=== PATIENT | female | born 1955 | race Caucasian/White ===

== ENCOUNTER 2017-05-31 16:15 | Emergency (ER) | payer OTHER ==
[2017-05-31] MEDS ORDERED: NS 0.9% 1000 ML* 1,000 ML IV ONE (18:36)
[2017-05-31 18:51] LABS: Hematocrit 44 % (35-47); Hemoglobin 14.3 g/dl (12.0-16.0); Mean Corpuscular HGB Conc 33 g/dl (31-36); Mean Corpuscular Hemoglobin 28 pg (27-31); Mean Corpuscular Volume 86 fL (80-97); Mean Platelet Volume 9 um3 (7.4-10.4); Red Cell Distribution Width 14 % (10.5-15); White Blood Count 9.4 10^3/ul (3.5-10.8)
[2017-05-31 18:53] LABS: Urine Bilirubin Negative (Negative); Urine Glucose Negative (Negative); Urine Nitrite Negative (Negative)
[2017-05-31 19:05] LABS: Albumin 4.2 g/dL (3.2-5.2); BUN/Creatinine Ratio 20.5 (8-20); Calcium 8.9 mg/dL (8.6-10.3); EGFR African American 104.9 (>60); EGFR Non-African American 81.6 (>60); Globulin 2.9 g/dL (2-4); Magnesium 2.1 mg/dL (1.9-2.7); Potassium 3.8 mmol/L (3.5-5.0); Total Bilirubin 0.3 mg/dL (0.2-1.0); Total Protein 7.1 g/dL (6.4-8.9)
[2017-05-31 19:40] LABS: TSH (Thyroid Stimulating Horm) 2.61 mcIU/mL (0.34-5.60)
--- NOTE | 2017-05-31 20:00 | ED ---
I, Oh,Sovivienne, scribed for Adriana Carranza MD on 05/31/17 at 1837 . Syncope/Near Syncope - HPI Summary HPI Summary: This 61 y/o female presents to ED for a syncopal episode three hours ago. Positive lightheaded dizziness right before the episode. Pt grabbed counter and proceeded to fall, got caught and sit by someone else in chair. Positive neck tightness, and mild chest tightness at 1240 PM. Negative melena. Pt decided to visit ED when she felt persistent general weakness. PMHx includes recently diagnosed with sleep apnea. FHx is positive for [place] to brother in his 40s, and HTN. Primary care involves Niraj Reddy NP. 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- PARTIAL PNEUMONECTOMY. DEVIATED SEPTUM REPAIR. D&C X 2. TOE NAIL REMOVED Hx Anesthesia Reactions: No Infectious Disease History: Denies: Traveled Outside the [place] in Last 30 Days - Family History Known Family History: Negative: Other - breast CA - Social History Alcohol Use: Daily Alcohol Amount: 1 GLASS OF WINE DAILY- A LITTLE MORE ON THE WEEKENDS Substance Use Type: Reports: None Smoking Status (MU): Never Smoked Tobacco Review of Systems Negative: Fever Neurological: Other - Positive for dizziness Positive: Weakness - general weakness, Syncope All Other Systems Reviewed And Are Negative: Yes Physical Exam Triage Information Reviewed: Yes Vital Signs On Initial Exam: Initial Vitals Temp Pulse Resp BP Pulse Ox 98.3 F 84 20 184/96 96 05/31/17 16:19 05/31/17 16:19 05/31/17 16:19 05/31/17 16:19 05/31/17 16:19 Vital Signs Reviewed: Yes Appearance: Positive: Well-Appearing, No Pain Distress Skin: Positive: Warm, Skin Color Reflects Adequate Perfusion, Dry Head/Face: Positive: Normal Head/Face Inspection Eyes: Positive: EOMI, KARIN Neck: Positive: Supple, Nontender Respiratory/Lung Sounds: Positive: Clear to Auscultation, Breath Sounds Present Cardiovascular: Positive: RRR, Pulses are Symmetrical in both Upper and Lower Extremities Abdomen Description: Positive: Nontender, Soft Musculoskeletal: Positive: Strength/ROM Intact Neurological: Positive: Sensory/Motor Intact, Alert, Oriented to Person Place, Time Psychiatric: Positive: Affect/Mood Appropriate AVPU Assessment: Alert Diagnostics - Vital Signs Vital Signs Temp Pulse Resp BP Pulse Ox 05/31/17 16:19 98.3 F 84 20 184/96 96 - Laboratory Lab Results: Lab Results 05/31/17 05/31/17 05/31/17 Range/Units 18:25 18:25 18:25 WBC 9.4 (3.5-10.8) 10^3/ul RBC 5.10 (4.0-5.4) 10^6/ul Hgb 14.3 (12.0-16.0) g/dl Hct 44 (35-47) % MCV 86 (80-97) fL MCH 28 (27-31) pg MCHC 33 (31-36) g/dl RDW 14 (10.5-15) % Plt Count 168 (150-450) 10^3/ul MPV 9 (7.4-10.4) um3 Neut % (Auto) 59.2 (38-83) % Lymph % (Auto) 31.6 (25-47) % Barry % (Auto) 6.7 (1-9) % Eos % (Auto) 1.6 (0-6) % Baso % (Auto) 0.9 (0-2) % Absolute Neuts (auto) 5.6 (1.5-7.7) 10^3/ul Absolute Lymphs (auto) 3.0 (1.0-4.8) 10^3/ul Absolute Monos (auto) 0.6 (0-0.8) 10^3/ul Absolute Eos (auto) 0.1 (0-0.6) 10^3/ul Absolute Basos (auto) 0.1 (0-0.2) 10^3/ul Absolute Nucleated RBC 0.01 10^3/ul Nucleated RBC % 0.1 D-Dimer, Quantitative (Less Than 230) ng/mL Sodium 137 (133-145) mmol/L Potassium 3.8 (3.5-5.0) mmol/L Chloride 105 (101-111) mmol/L Carbon Dioxide 25 (22-32) mmol/L Anion Gap 7 (2-11) mmol/L BUN 15 (6-24) mg/dL Creatinine 0.73 (0.51-0.95) mg/dL Est GFR ( Amer) 104.9 (>60) Est GFR (Non-Af Amer) 81.6 (>60) BUN/Creatinine Ratio 20.5 H (8-20) Glucose 93 (70-100) mg/dL Lactic Acid 1.0 (0.5-2.0) mmol/L Calcium 8.9 (8.6-10.3) mg/dL Magnesium 2.1 (1.9-2.7) mg/dL Total Bilirubin 0.30 (0.2-1.0) mg/dL AST 19 (13-39) U/L ALT 19 (7-52) U/L Alkaline Phosphatase 68 (34-104) U/L Troponin I 0.00 (<0.04) ng/mL Total Protein 7.1 (6.4-8.9) g/dL Albumin 4.2 (3.2-5.2) g/dL Globulin 2.9 (2-4) g/dL Albumin/Globulin Ratio 1.4 (1-3) TSH 2.61 (0.34-5.60) mcIU/mL Urine Color Urine Appearance Urine pH (5-9) Ur Specific [place] (1.010-1.030) Urine Protein (Negative) Urine Ketones (Negative) Urine Blood (Negative) Urine Nitrate (Negative) Urine Bilirubin (Negative) Urine Urobilinogen (Negative) Ur Leukocyte Esterase (Negative) Urine Glucose (Negative) 05/31/17 05/31/17 Range/Units 18:25 18:35 WBC (3.5-10.8) 10^3/ul RBC (4.0-5.4) 10^6/ul Hgb (12.0-16.0) g/dl Hct (35-47) % MCV (80-97) fL MCH (27-31) pg MCHC (31-36) g/dl RDW (10.5-15) % Plt Count (150-450) 10^3/ul MPV (7.4-10.4) um3 Neut % (Auto) (38-83) % Lymph % (Auto) (25-47) % Barry % (Auto) (1-9) % Eos % (Auto) (0-6) % Baso % (Auto) (0-2) % Absolute Neuts (auto) (1.5-7.7) 10^3/ul Absolute Lymphs (auto) (1.0-4.8) 10^3/ul Absolute Monos (auto) (0-0.8) 10^3/ul Absolute Eos (auto) (0-0.6) 10^3/ul Absolute Basos (auto) (0-0.2) 10^3/ul Absolute Nucleated RBC 10^3/ul Nucleated RBC % D-Dimer, Quantitative < 200 (Less Than 230) ng/mL Sodium (133-145) mmol/L Potassium (3.5-5.0) mmol/L Chloride (101-111) mmol/L Carbon Dioxide (22-32) mmol/L Anion Gap (2-11) mmol/L BUN (6-24) mg/dL Creatinine (0.51-0.95) mg/dL Est GFR ( Amer) (>60) Est GFR (Non-Af Amer) (>60) BUN/Creatinine Ratio (8-20) Glucose (70-100) mg/dL Lactic Acid (0.5-2.0) mmol/L Calcium (8.6-10.3) mg/dL Magnesium (1.9-2.7) mg/dL Total Bilirubin (0.2-1.0) mg/dL AST (13-39) U/L ALT (7-52) U/L Alkaline Phosphatase (34-104) U/L Troponin I (<0.04) ng/mL Total Protein (6.4-8.9) g/dL Albumin (3.2-5.2) g/dL Globulin (2-4) g/dL Albumin/Globulin Ratio (1-3) TSH (0.34-5.60) mcIU/mL Urine Color Yellow Urine Appearance Clear Urine pH 6.0 (5-9) Ur Specific [place] 1.020 (1.010-1.030) Urine Protein Negative (Negative) Urine Ketones Negative (Negative) Urine Blood Negative (Negative) Urine Nitrate Negative (Negative) Urine Bilirubin Negative (Negative) Urine Urobilinogen Negative (Negative) Ur Leukocyte Esterase Negative (Negative) Urine Glucose Negative (Negative) Result Diagrams: 05/31/17 18:25 05/31/17 18:25 Lab Statement: Any lab studies that have been ordered have been reviewed, and results considered in the medical decision making process. - EKG 1833 Cardiac Rate: NL - at 67 bpm EKG Rhythm: Sinus Rhythm Course/Dx Course Of Treatment: 61 yo female with normal labs and ekg with near syncope and short lasting cp greater than 6 hours before arrival. All labs, cxr, ddimer and trop neg. Pt and are aware that it looks as though she has not had a heart attack but she needs a stress test sooner than later, she was offered an obv admission but wanted to to go home and will followup as an outpt for a stress test - Diagnoses Provider Diagnoses: Near syncope Discharge - Discharge Plan Condition: Stable Disposition: HOME Patient Education Materials: Near Syncope (ED) Referrals: Niraj Reddy, SET UP WORKER [Primary Care Provider] - 2 Days The documentation as recorded by the Clark ramos Soohyun accurately reflects the service I personally performed and the decisions made by me, Adriana Carranza MD.
[2017-05-31 20:51] VITALS: BP 159/90
== END 2017-05-31 20:53 | disposition home or self-care (01) ==
LOC: ED 16:15
DX: R55 Syncope and collapse (principal); G47.30 Sleep apnea, unspecified; J45.909 Unspecified asthma, uncomplicated; Z88.5 Allergy status to narcotic agent
CPT/HCPCS: 36415; 80053; 81003; 83605; 83735; 84443; 84484; 85025; 85379; 93005; 99282

== ENCOUNTER 2017-06-18 07:27 | Day surgery (SDC) | payer OTHER ==
[~2017-06-18 07:27] MED LIST: Buffered Lidocaine 0.9% SYRIN* 5 ML/SYR SYRINGE INTRADERM ONE; Dexamethasone IV* 4 MG/ML 1 ML (4 MG) IV SLOW PU ONE; Famotidine IV* 10 MG/ML 2 ML (20 mg) IV ONE
[2017-06-18] MEDS ORDERED: Buffered Lidocaine 0.9% SYRIN* 5 ML/SYR SYRINGE ONE (07:36)
[2017-06-18] MEDS ORDERED: Dexamethasone IV* 4 MG/ML 1 ML (4 MG) ONE (07:36)
[2017-06-18] MEDS ORDERED: Famotidine IV* 10 MG/ML 2 ML (20 mg) ONE (07:36)
[2017-06-18] MEDS ORDERED: Scopolamine 1.5 mg* PATCH ONE (08:38)
[2017-06-18] MEDS ORDERED: fentaNYL* 50 MCG/ML 2 ML VIAL (100 MCG VIAL) ONE (08:41)
[2017-06-18] MEDS ORDERED: Midazolam* 1 MG/ML 2 ML VIAL (2 MG) ONE (08:41)
[2017-06-18] MEDS ORDERED: Scopolamine 1.5 mg* PATCH TRANSDERM SCH (09:00)
[2017-06-18] MEDS ORDERED: Silver Nitrate/Potassium Nitr* 1 EA STICK ONE (09:17)
[2017-06-18] MEDS ORDERED: fentaNYL* 50 MCG/ML 2 ML VIAL (100 MCG VIAL) IV PRN (09:35)
[2017-06-18] MEDS ORDERED: DiMENhydriNATE IV* 50 MG/ML VIAL IV PUSH PRN (09:35)
[2017-06-18] MEDS ORDERED: oxyCODONE/Acetamin 5/325 MG* TAB ONE (10:11)
[2017-06-18 10:44] VITALS: BP 151/88
--- NOTE | 2017-06-18 23:11 | OP ---
AMENDED REPORT NOW INCLUDES DATE OF OPERATION - ESIGNED BEFORE ADJUSTMENT * DATE OF OPERATION: 06/18/17 - [facility] DATE OF : [birth year] SURGEON: Enoch Gould MD GAME OPERATOR: None. ANESTHESIOLOGIST: Thai Ballard MD ANESTHESIA: General endotracheal tube. PRE-OP DIAGNOSIS: Thickened endometrium. POST-OP DIAGNOSES: Thickened endometrium. OPERATIVE PROCEDURE: D and C, hysteroscopy. ESTIMATED BLOOD LOSS: Minimal. SPECIMEN: Includes endometrium. COMPLICATIONS: None. FINDINGS: On exam under anesthesia, uterus mid_ position. Cervix, vagina, vulva appeared normal. On hysteroscopy, the uterine cavity appeared atrophic without any polyps or fibroids visualized. Both tubal ostia were well visualized. DESCRIPTION OF PROCEDURE: The patient identified, procedure identified as D and C, hysteroscopy. The patient was taken to the operating room, prepped and draped in the usual fashion in dorsal lithotomy position under general anesthesia. Two single-tooth tenaculums were placed on the anterior lip of the cervix. Cervix was dilated easily up to a #27 Fredy dilator. The hysteroscope was inserted and the above findings were noted. The hysteroscope removed and a sharp curette was inserted. Sharp curettage was performed until good sampling had been taken throughout the circumference. Both single-tooth tenaculums were removed. Silver nitrate was applied to the tenaculum sites. Hemostasis was verified and the patient returned to recovery room in stable condition. All sponge and instrument counts were correct. [id number]/CPS #: [id number] MTDD
== END 2017-06-18 10:45 | disposition home or self-care (01) ==
LOC: OR 07:27
PROVIDERS: ATTEND Obstetrics & Gynecology
DX: R93.8 Abnormal findings on diagnostic imaging of other specified body structures (principal); Z68.41 Body mass index [BMI] 40.0-44.9, adult; G47.33 Obstructive sleep apnea (adult) (pediatric); I10 Essential (primary) hypertension; J45.909 Unspecified asthma, uncomplicated
CPT/HCPCS: 88305; A9270-GY; J1100; J2250; J3010

== ENCOUNTER 2019-03-07 09:07 | Day surgery (SDC) | payer OTHER ==
[~2019-03-07 09:07] MED LIST changes: +Acetaminophen TAB* 325 MG PO PRN; -Buffered Lidocaine 0.9% SYRIN* 5 ML/SYR SYRINGE INTRADERM ONE; +Buffered Lidocaine 1% SYRIN* 1 ML/SYRINGE INTRADERM ONE; -Dexamethasone IV* 4 MG/ML 1 ML (4 MG) IV SLOW PU ONE; -Famotidine IV* 10 MG/ML 2 ML (20 mg) IV ONE
[2019-03-07] MEDS ORDERED: Midazolam* 1 MG/ML 2 ML VIAL (2 MG) ONE ×2 (10:31→10:40)
--- NOTE | 2019-03-07 11:09 | OP ---
DATE OF OPERATION/DATE OF DICTATION: 03/07/2019. DATE OF : 1955 SURGEON: Dr. David Kennedy. ELECTRIC DEICER INSPECTOR: None. ANESTHESIA: Topical with intravenous sedation. PRE-OP DIAGNOSIS: Cataract, left eye. POST-OP DIAGNOSIS: Cataract, left eye. OPERATIVE PROCEDURE: Phacoemulsification and cataract extraction with posterior chamber intraocular lens implant, left eye. COMPLICATIONS: None. BLOOD LOSS: None. OPERATIVE FINDINGS: The patient was brought to the operating room and received a small amount of int ravenous sedation. A drop of Tetracaine was placed in her left eye. She was prepped and draped in t he usual sterile fashion for ophthalmic surgery and attention was directed to the left eye where a sp eculum was placed. A paracentesis was created at the 5 o'clock position and 0.1 cc of 1 percent pres ervative-free Lidocaine was injected into the anterior chamber followed by DisCoVisc. The eye was di gitally stabilized while a 2.75 mm keratome was used to create a triplanar clear corneal incision at the 3 o'clock position. A continuous curvilinear capsulorrhexis was created with a cystotome and Utr renard forceps. BSS on a cannula was used to hydrodissect the lens from the capsule. Phacoemulsificati on was performed in a [id number] technique to create four fragments which were removed. Resi dual cortical material was removed with irrigation and aspiration. DisCoVisc was used to inflate the capsular bag and an AUOOTO 25.5 diopter lens was folded and inserted into the capsular bag. DisCoVis c was removed using irrigation and aspiration. BSS on a cannula was used to hydrate the corneal stro ma and seal the wound. At the end of the case the pupil was round and the lens was centered. The eye was of normal pressure and the wound was water tight. The speculum was removed and topical Maxitrol ointment was placed on the surface of the eye. The eye was closed, patched and shielded and the pat ient was sent to the recovery room in stable condition with post operative instructions and follow-up appointment given. [id number]/[facility] #: [id number]
[2019-03-07 11:17] VITALS: BP 153/83
[2019-03-07] MEDS ORDERED: Tropicamide 1% OPTH.SOL* BTL ONE (12:13)
[2019-03-07] MEDS ORDERED: Lidocaine 1%* 5 ML VIAL ONE (12:13)
[2019-03-07] MEDS ORDERED: Cyclopentolate 1% OPTH.SOL* 2 ML BTL ONE (12:13)
[2019-03-07] MEDS ORDERED: Neomycin/Polymy/Dex OPHTH.OIN* 3.5 GM ONE (12:13)
[2019-03-07] MEDS ORDERED: Tetracaine 0.5% OPTH.SOL 4 ML* 1 DROP BTL ONE (12:13)
[2019-03-07] MEDS ORDERED: Phenylephrine OPHTH SOL 2.5%* 2 ML ONE (12:13)
[2019-03-07] MEDS ORDERED: Ketorolac 0.5% OPHTH (NF) 0.5 % 5 ML BTL ONE (12:13)
== END 2019-03-07 11:10 | disposition home or self-care (01) ==
LOC: OREAST 09:07
PROVIDERS: ATTEND Ophthalmology
DX: H25.12 Age-related nuclear cataract, left eye (principal); J45.909 Unspecified asthma, uncomplicated; I10 Essential (primary) hypertension; M19.90 Unspecified osteoarthritis, unspecified site
CPT/HCPCS: A9270-GY; J2250; V2632

== ENCOUNTER 2019-03-14 07:27 | Day surgery (SDC) | payer OTHER ==
[~2019-03-14 07:27] MED LIST changes: -Acetaminophen TAB* 325 MG PO PRN
[2019-03-14] MEDS ORDERED: Midazolam* 1 MG/ML 2 ML VIAL (2 MG) ONE (08:33)
[2019-03-14] MEDS ORDERED: Lidocaine 2% PF * 5 ML VIAL ONE (08:56)
[2019-03-14] MEDS ORDERED: Propofol* 10 MG/ML 20 ML BTL ONE (08:56)
[2019-03-14 09:09] VITALS: BP 150/76
--- NOTE | 2019-03-14 10:55 | OP ---
DATE OF OPERATION/DATE OF DICTATION: 03/14/2019 - [facility] DATE OF : 1955. SURGEON: Dr. David Kennedy. BACON SKINNER: None. ANESTHESIA: Topical with intravenous sedation. PRE-OP DIAGNOSIS: Cataract, right eye. POST-OP DIAGNOSIS: Cataract, right eye. OPERATIVE PROCEDURE: Phacoemulsification and cataract extraction with posterior chamber intraocular lens implant, right eye. COMPLICATIONS: None. BLOOD LOSS: None. DESCRIPTION OF PROCEDURE: The patient was brought to the operating room and received a small amount of intravenous sedation. A drop of Tetracaine was placed in her right eye. She was prepped and draped in the usual sterile fashion for ophthalmic surgery and attention was directed to the right eye where a speculum was placed. A paracentesis was created at the 11 o'clock position and 0.1 cc of 1 percent preservative-free Lidocaine was injected into the anterior chamber followed by DisCoVisc. The eye was digitally stabilized while a 2.75 mm keratome was used to create a triplanar clear corneal incision at the 9 o'clock position. A continuous curvilinear capsulorrhexis was created with a cystotome and Utrata forceps. BSS on a cannula was used to hydrodissect the lens from the capsule. Phacoemulsification was performed in a divide-and- conquer technique to create four fragments which were removed. Residual cortical material was removed with irrigation and aspiration. DisCoVisc was used to inflate the capsular bag and an AUOOTO 25.0 diopter lens was folded and inserted into the capsular bag. DisCoVisc was removed using irrigation and aspiration. BSS on a cannula was used to hydrate the corneal stroma and seal the wound. At the end of the case the pupil was round and the lens was centered. The eye was of normal pressure and the wound was water tight. The speculum was removed and topical Maxitrol ointment was placed on the surface of the eye. The eye was closed, patched and shielded and the patient was sent to the recovery room in stable condition with post operative instructions and follow-up appointment given. [id number]/[facility] #: [id number] MTDD
[2019-03-14] MEDS ORDERED: Phenylephr/Ketorolac 1%/0.3% OPH DROP BTL ONE ×2 (12:45→13:55)
[2019-03-14] MEDS ORDERED: Phenylephrine OPHTH SOL 2.5%* 2 ML ONE (13:50)
[2019-03-14] MEDS ORDERED: Neomycin/Polymy/Dex OPHTH.OIN* 3.5 GM ONE (13:50)
[2019-03-14] MEDS ORDERED: Tropicamide 1% OPTH.SOL* BTL ONE (13:50)
[2019-03-14] MEDS ORDERED: Lidocaine 1%* 5 ML VIAL ONE (13:50)
[2019-03-14] MEDS ORDERED: Cyclopentolate 1% OPTH.SOL* 2 ML BTL ONE (13:50)
[2019-03-14] MEDS ORDERED: Tetracaine 0.5% OPTH.SOL 4 ML* 1 DROP BTL ONE (13:51)
[2019-03-14] MEDS ORDERED: Ketorolac 0.5% OPHTH (NF) 0.5 % 5 ML BTL ONE (13:51)
== END 2019-03-14 09:13 | disposition home or self-care (01) ==
LOC: OREAST 07:27
PROVIDERS: ATTEND Ophthalmology
DX: H25.11 Age-related nuclear cataract, right eye (principal); J45.909 Unspecified asthma, uncomplicated
CPT/HCPCS: A9270-GY; C9447; J2250; J2704; V2632